=== PATIENT | male | born 1960 | race Caucasian/White ===

== ENCOUNTER → 2024-04-11 15:51 | Outpatient (REF) | payer BC, SELFPAY | LOC: RAD 15:51 | PROVIDERS: ATTENDING PHYSICIAN Nurse Practitioner Adult Health; FAMILY PHYSICIAN Family Medicine | DX: J43.1 Panlobular emphysema (principal) | CPT/HCPCS: 71250 ==

== ENCOUNTER → 2024-04-30 16:58 | Outpatient (REF) | payer BC, SELFPAY | LOC: RCS 16:58 | PROVIDERS: ATTENDING PHYSICIAN Nurse Practitioner Adult Health; FAMILY PHYSICIAN Family Medicine | DX: J43.1 Panlobular emphysema (principal); R06.02 Shortness of breath | CPT/HCPCS: 93306 ==